=== PATIENT | male | born 2000 | race Caucasian/White ===

== ENCOUNTER 2020-03-04 11:37 | Emergency (ER) | payer OTHER ==
[~2020-03-04] VITALS: Ht 180.3 cm; Wt 95.5 kg
[~2020-03-04 11:37] MED LIST: OTC CREAM
[2020-03-04 13:00] VITALS: BP 142/67
== END 2020-03-04 13:05 | disposition home or self-care (01) ==
LOC: EMS 11:38
DX: H61.22 Impacted cerumen, left ear (principal)
CPT/HCPCS: 69209